=== PATIENT | female | born 1955 | race Caucasian/White ===

== ENCOUNTER 2016-11-14 14:15 | Inpatient (IN) | payer MEDICARE, OTHER ==
[~2016-11-14] VITALS: Ht 165.1 cm; Wt 126.8 kg
[2016-11-18] MEDS ORDERED: VENTAER INH (15:07)
[2016-11-18] MEDS ORDERED: LEVO125T4 PO (15:07)
[2016-11-18] MEDS ORDERED: LOVA10TA PO (15:07)
[2016-11-18] MEDS ORDERED: LISI2.5T3 PO (15:07)
[2016-11-18] MEDS ORDERED: MECL-62 PO (15:07)
[2016-11-18] MEDS ORDERED: CYMB60CA PO (15:07)
[2016-11-18] MEDS ORDERED: METF1000 PO (15:07)
[2016-11-18] MEDS ORDERED: AMBI10TA PO (15:07)
[2016-11-18] MEDS ORDERED: FLUTI220I INH (15:07)
[2016-11-18] MEDS ORDERED: HYDR-755 PO (15:07)
[2016-11-18] MEDS ORDERED: GABA600T PO (15:07)
[2016-11-18] MEDS ORDERED: BUPR150T3 PO (15:07)
[2016-11-18] MEDS ORDERED: PROT40TA PO (15:07)
[2016-11-18] MEDS ORDERED: BACL10TA PO (15:07)
[2016-12-03] MEDS ORDERED: LACTATED RINGER'S 1000 ML IV SCH (09:00)
[2016-12-03] MEDS ORDERED: DEXAMETHASONE SOD PHOS 20 MG/5 ML VIAL IV SCH (09:00)
[2016-12-03] MEDS ORDERED: INSULIN HUMAN REGULAR 1,000 UNITS/10 ML VIAL SQ PRN (09:00)
[2016-12-03] MEDS ORDERED: VANCOMYCIN 1000 MG/NS 250 ML (for <70 kg) IV SCH ×2 (09:00)
[2016-12-03] MEDS ORDERED: SODIUM CHLORID 0.9% 500 ML IV SCH (09:00)
[2016-12-03] MEDS ORDERED: METOPROLOL TARTRATE 25 MG TAB PO PRN (09:00)
[2016-12-03] MEDS ORDERED: LOVA40TA PO (09:38)
[2016-12-03] MEDS ORDERED: BUSP10TA PO (09:38)
[2016-12-03] MEDS ORDERED: ZOFR4TAB PO (09:38)
[2016-12-03 09:41] VITALS: BP 131/91; PULSE 68; RESP 20; TEMP 97.9; O2SAT 98
[2016-12-03] MEDS: SODIUM CHLORIDE 0.9% IV SCH ×2 (10:00→12:23)
[2016-12-03] MEDS: TRANEXAMIC ACID IV SCH ×2 (10:00→12:23)
[2016-12-03] MEDS ORDERED: ROPIVACAINE PERI-ARTICULAR INJECTION. PERIART SCH ×5 (10:00)
[2016-12-03] MEDS ORDERED: GENTAMICIN SULFATE 80 MG/2 ML VIAL ONE (11:02)
[2016-12-03] MEDS ORDERED: HYDROmorphone HCL PF 2 MG/ML VIAL ONE (11:20)
[2016-12-03] MEDS ORDERED: ACETAMINOPHEN 1000 MG/100 ML VIAL IV ONE (11:20)
[2016-12-03] MEDS: POVIDONE IODINE 7.5% SCRUB 118 ML BOTTLE TOP SCH (11:30)
[2016-12-03] MEDS ORDERED: MIDAZOLAM HCL 2 MG/2 ML VIAL ONE (11:32)
[2016-12-03] MEDS ORDERED: DICLOFENAC SODIUM 37.5 MG/ML VIAL IV PUSH ONE (11:39)
[2016-12-03] MEDS ORDERED: EPINEPHRINE IV PUSH ONE (12:15)
[2016-12-03] MEDS ORDERED: CLONIDINE IV PUSH ONE (12:15)
[2016-12-03] MEDS ORDERED: [UNRECOGNIZED DRUG - OTHER] IV PUSH ONE (12:15)
[2016-12-03] MEDS ORDERED: KETOROLAC IV PUSH ONE (12:15)
--- NOTE | 2016-12-03 12:23 | HHI.DCPOC ---
Discharge Care Plan Diagnosis: (1) Primary localized osteoarthrosis, lower leg (2) Status post total knee replacement, right Your Health Problems Are: Difficulty with ADL Goals to Promote Your Health * To prevent worsening of your condition and complications * To maintain your health at the optimal level Directions to Meet Your Goals Take your medications as prescribed Follow your dietary instruction Follow activity as directed Keep your appointments as scheduled Take your immunizations and boosters as scheduled If your symptoms worsen call your PCP, if no PCP go to Urgent Care Center or Emergency Room Smoking is Dangerous to Your Health. Avoid second hand smoke Call the 24-hour hour crisis hotline for domestic abuse at Darryl Lackey Dec 03, 2016 12:23
--- NOTE | 2016-12-03 12:25 | HHI.FF ---
Face to Face Verification Diagnosis: (1) Primary localized osteoarthrosis, lower leg (2) Status post total knee replacement, right Physical Therapy Gait training, Transfer training, bed to chair Knee: Total knee Right LE Weight Bearing: WB as tolerated Right LE Range of Motion: Active ROM Nursing Nursing: Garfield teaching, Dressing changes Dressing Changes: Daily dressing change I have seen patient Moni Singh on 12/03/16. My clinical findings support the need for the requested home health care services because: Limited ability to care for self High risk of falls I certify that my clinical findings support that this patient is homebound because: Post-op weakness Unsteady gait/balance Darryl Lackey Dec 03, 2016 12:25
[2016-12-03] MEDS ORDERED: CPMMACHINE (12:28)
[2016-12-03] MEDS ORDERED: COMMODE 3-IN-11 MIS (12:28)
[2016-12-03] MEDS ORDERED: WALKER WHEELS/F1 MIS (12:28)
[2016-12-03] MEDS ORDERED: ePHEDrine/NS 25 MG/5 ML SYR IV ONE (13:04)
[2016-12-03] MEDS ORDERED: PROPOFOL 200 MG/20 ML AMP IV ONE (13:04)
[2016-12-03] MEDS ORDERED: LACTATED RINGER'S 1000 ML INJ 1,000 ML IV ONE (13:05)
[2016-12-03] MEDS ORDERED: NEOSTIGMINE 3 MG/3 ML SYR IV ONE (13:05)
[2016-12-03] MEDS ORDERED: ONDANSETRON HCL 4 MG/2 ML VIAL IV PUSH ONE (13:05)
[2016-12-03] MEDS ORDERED: ALUMINUM/MAGNESIUM/SIMETH 30 ML CUP PO PRN (14:15)
[2016-12-03] MEDS ORDERED: ONDANSETRON HCL 4 MG/2 ML VIAL IVP PRN (14:15)
[2016-12-03] MEDS ORDERED: diphenhydrAMINE HCL 50 MG/ML VIAL IV PRN (14:15)
[2016-12-03] MEDS ORDERED: MAGNESIUM HYDROXIDE SUSP 30 ML CUP PO PRN (14:15)
[2016-12-03] MEDS ORDERED: BISACODYL 10 MG SUPP PR PRN (14:15)
[2016-12-03] MEDS ORDERED: SODIUM CHLORIDE 0.9% FLUSH 5 ML FLUSH IVF PRN (14:15)
[2016-12-03] MEDS ORDERED: NALOXONE HCL 0.4 MG/ML AMP IV PRN (14:15)
[2016-12-03] MEDS ORDERED: Post-op Orders (for Pharmacy) MISC XX ONE (14:15)
--- NOTE | 2016-12-03 14:20 | PD.OP ---
cc: Wolf Bonilla MD Operative Report Date of Surgery: Dec 03, 2016 Preoperative Diagnosis: Right knee severe osteoarthritis. Morbid obesity. Postoperative Diagnosis: Same Procedure: Right total knee arthroplasty Anesthesia: Gen. Surgeon: Wolf Bonilla Casing Mixer(s): JEFF Ching The surgical procedure was assisted by my Advanced Registered Nurse Practitioner. My ORBITREAD OPERATOR presence was necessary throughout this case for the manipulation and positioning of the surgical extremity. My ORBITREAD OPERATOR was assisting me throughout the duration of this procedure. The skill set of an Advance Registered Nurse Practitioner was medically necessary to complete this procedure. During the surgical case, the surgical dressing maker was working at the back table and the Advance Registered Nurse Practitioner was directly assisting me. Operation and Findings: IMPLANTS: DePuy Attune: Patella: size 35. Femur, posterior stabilized size 7. Tibia, rotating platform size 6. Tibial insert, rotating platform, posterior stabilized size 7 mm thickness. ESTIMATED BLOOD LOSS: 150 cc TOURNIQUET TIME: 48 minutes at 300 mmHg pressure. JUSTIFICATION FOR PROCEDURE: The patient has end-stage osteoarthritis to the knee. There is an attached conservative measures pathway form in the chart that describes the nonoperative measures that were undertaken prior to consideration of surgical management. The patient understood the risks and benefits of surgical management. See my office notes for further details PROCEDURE: The patient was brought back to the operative theatre. Adequate anesthesia was obtained. The patient received intravenous vancomycin and Ancef. The lower extremity was prepped and draped in the usual sterile fashion.The leg was exsanguinated, the tourniquet was raised. A standard anterior incision was performed followed by medial parapatellar arthrotomy was performed. End-stage arthritis was identified. Osteotomy of the patella was performed. We drilled holes for the patella. We trialed the patella component. We placed an intramedullary guide into the distal femur. We ultimately resected 13 mm off of the distal femur in 5 degrees of valgus. The remnants of the ACL and PCL were resected. Osteotomy of the proximal tibia was performed, resecting 5 mm off of the medial side. This was done with 3 degrees of posterior slope using an extramedullary guide. The distal end of the guide was placed in the mid aspect of the ankle. The femur was sized, and four chamfer cuts were completed in 3 of external rotation. We then cut the central box in the distal femur to replace the PCL. We resected the remnants of the menisci and removed osteophytes off of the femur and tibia. We then trialed the knee. We punched the tibia for the keel, and then used standard technique to cement in components. Excess cement was removed. We trialed the knee again and the final polyethylene thickness was chosen to provide extension to 0 degrees, and flexion of 140 degrees to gravity. The ligaments were appropriately balanced. Lateral release was necessary to obtain excellent patellofemoral tracking. The tourniquet was released and adequate hemostasis was obtained. An intra- articular injection of a cocktail was injected (with no ropivacaine due to allergy). The posterior knee was inspected for excess cement, which was removed. The final polyethylene was put into position after thorough irrigation. We then closed deep fascia with a #2 Stratafix followed by skin with 2-0 Vicryl followed by karin. Postop plan is to weight-bear as tolerated. DVT prophylaxis will be performed with Adolfo, NAZIA benites, early mobilization, and Lovenox followed by aspirin. Wolf Bonilla MD Dec 03, 2016 14:20
[2016-12-03] MEDS ORDERED: ASPI325T PO (14:21)
[2016-12-03] MEDS ORDERED: HYDR-3366 PO (14:21)
[2016-12-03] MEDS ORDERED: ENOX40P SQ (14:21)
[2016-12-03] MEDS ORDERED: PILL SPLITTER OTHER PRN (14:45)
[2016-12-03] MEDS ORDERED: ONDANSETRON ODT 4 MG TAB PO PRN (14:45)
[2016-12-03] MEDS ORDERED: fentaNYL CITRATE 250 MCG/5 ML AMP ONE (14:48)
[2016-12-03] MEDS ORDERED: *morphine SULFATE 8 MG/ML PERIprocedure ONLY ONE ×3 (14:50→15:03)
[2016-12-03] MEDS ORDERED: SODIUM CHLORIDE 0.9% IV SCH (15:00)
[2016-12-03] MEDS ORDERED: TRANEXAMIC ACID IV SCH (15:00)
[2016-12-03] MEDS ORDERED: *MEPERIDINE 25 MG INJ VIAL PERIprocedural Use ONLY ONE (15:06)
[2016-12-03] MEDS ORDERED: *diphenhydrAMINE HCL 50 MG/ML VIAL PERIprocedural Use ONLY ONE (15:25)
[2016-12-03] MEDS: SODIUM CHLOR 0.9% 1000 ML INJ 1,000 ML IV SCH (15:30)
--- NOTE | 2016-12-03 15:52 | RADRPT ---
EXAM DATE/TIME: 12/03/2016 15:12 [facility] COMPARISON: CHEST PA & LAT, November 18, 2016, 12:52. INDICATIONS : Post-op right knee. MEDICAL HISTORY : None. SURGICAL HISTORY : None. ENCOUNTER: Initial ACUITY: 1 day PAIN SCORE: 10/10 LOCATION: Right Knee. FINDINGS: The patient is post right knee arch plasty. Orthopedic hardware is in excellent position. CONCLUSION: 1. Orthopedic hardware in excellent position. Darryl Wilkinson MD on December 03, 2016 at 15:51 Board Certified Radiologist. This report was verified electronically.
[2016-12-03] MEDS ORDERED: *RESP: ALBUTEROL 2.5 MG/3 ML NEB (PRN) PERIprocedural Use ONLY NEB ONE (15:55)
[2016-12-03 16:30] VITALS: O2SAT 96
[2016-12-03] MEDS ORDERED: ALBUTEROL SULFATE 90 MCG/ACT HFA 8 GM INHALER INH PRN (17:00)
--- NOTE | 2016-12-03 17:36 | PD.CONS ---
[facility] By [facility] surgery Reason for Consult Medical management Primary Care Physician Ashok Ely M.D. Diagnoses: History of Present Illness 61-year-old female with a history of diabetes type 2, hypothyroidism, hypertension, sever right knee OA who despite medical management and intramuscular injection continue to have right knee pain affecting his daily living of activity was taken to the OR and underwent Right total knee arthroplasty. Patient was seen in PACU, alert and oriented 3 and denies any chest pain or shortness of breath. Review of Systems Other 12 systems reviewed and are negative except for the one mentioned in history of present illness Past Family Social History Allergies: Coded Allergies: Penicillin (Unverified Allergy, Severe, hives, 12/03/16) Uncoded Allergies: betadine (Allergy, Unknown, skin irritation, 11/18/16) ivp dye (Allergy, Unknown, unknown, 11/18/16) lidocaine (Allergy, Unknown, swelling at inject site, 11/18/16) Past Medical History Diabetes type 2 Hypertension Obstructive sleep apnea Asthma COPD Hypothyroidism Past Surgical History Right total knee arthroplasty 12/03/16 Gastric bypass Reported Medications See EMR Family History Noncontributory Social History Denies tobacco, alcohol or illicit drug intake Physical Exam Vital Signs Vital Signs Date Time Temp Pulse Resp B/P Pulse Ox O2 Delivery O2 Flow Rate FiO2 12/03/16 09:41 97.9 68 20 131/91 98 Physical Exam GENERAL: This is a well-nourished, well-developed patient, in no apparent distress. SKIN: No rashes, ecchymoses or lesions. Cool and dry. HEAD: Atraumatic. Normocephalic. No temporal or scalp tenderness. EYES: Pupils equal round and reactive. Extraocular motions intact. No scleral icterus. No injection or drainage. ENT: Nose without bleeding, purulent drainage or septal hematoma. Throat without erythema, tonsillar hypertrophy or exudate. Uvula midline. Airway patent. NECK: Trachea midline. No JVD or lymphadenopathy. Supple, nontender, no meningeal signs. CARDIOVASCULAR: Regular rate and rhythm without murmurs, gallops, or rubs. RESPIRATORY: Clear to auscultation. Breath sounds equal bilaterally. No wheezes , rales, or rhonchi. GASTROINTESTINAL: Abdomen soft, non-tender, nondistended. No hepato-splenomegaly , or palpable masses. No guarding. MUSCULOSKELETAL: Extremities without clubbing, cyanosis, or edema. No joint tenderness, effusion, or edema noted. Right knee repair-neurovascular intact NEUROLOGICAL: Awake and alert. Cranial nerves II through XII intact. Motor and sensory grossly within normal limits. Five out of 5 muscle strength in all muscle groups. Normal speech. Laboratory Laboratory Tests Test 12/03/16 09:35 Blood Type A POSITIVE Antibody Screen NEGATIVE Blood Bank Comment Imaging Last Impressions Knee X-Ray 12/03/16 1413 Signed Impressions: Service Date/Time: Saturday, December 03, 2016 15:12 - CONCLUSION: 1. Orthopedic hardware in excellent position. Darryl Wilkinson MD Assessment and Plan Assessment and Plan 61-year-old female with Right Severe knee OA:s/p Right total knee arthroplasty 12/03/16, management per orthopedic surgery. Continue postop care including antibiotics, pain management. PT consult to treat and eval. Lovenox for DVT prophylaxis Diabetes type 2: Resume metformin, low-dose insulin sliding scale Diabetic neuropathy: Continue Neurontin Obstructive sleep apnea: Continue home CPAP machine Hypertension: Lisinopril 2.5 mg daily COPD: No exacerbation, bronchodilator when necessary DVT prophylaxis: Lovenox Thank you for this consultation Code Status Full code Discussed Condition With Patient Justin De La Paz MD Dec 03, 2016 17:36
[2016-12-03] MEDS ORDERED: RESP: ALBUTEROL 2.5 MG/IPRATROPIUM 0.5 MG NEB (PRN) NEB (17:45)
[2016-12-03] MEDS ORDERED: ENALAPRILAT 1.25 MG/ML VIAL IV PUSH PRN (17:45)
[2016-12-03] MEDS ORDERED: BACITRACIN TOP OINT 15 GM TUBE ONE (17:52)
[2016-12-03] MEDS: busPIRone HCL 10 MG TAB PO SCH (18:00)
[2016-12-03] MEDS: MORPHINE SULFATE 4 MG/ML INJ IV PUSH PRN (18:00)
[2016-12-03 18:25] VITALS: BP 116/61; PULSE 84; RESP 20; TEMP 95.7; O2SAT 94
[2016-12-03] MEDS: metFORMIN HCL 500 MG TAB PO SCH (18:37)
[2016-12-03] MEDS: GABAPENTIN 300 MG CAP PO SCH (18:37)
[2016-12-03] MEDS: ACETAMINOPHEN/HYDROcodone 325 MG/10 MG TAB PO PRN (18:38)
[2016-12-03] MEDS ORDERED: METR28.4 TOPICAL (18:54)
[2016-12-03 20:26] VITALS: BP 103/55; PULSE 80; RESP 19; TEMP 96.5; O2SAT 94
[2016-12-03] MEDS: SODIUM CHLORIDE 0.9% FLUSH 5 ML FLUSH IVF SCH (21:00)
[2016-12-03] MEDS: hydrOXYzine HCL 10 MG TAB PO SCH (21:59)
[2016-12-04] VITALS (8 sets, daily range): BP systolic 55–123; BP diastolic 52–63; PULSE 63–94; RESP 16–21; TEMP 95.5–98.5; O2SAT 91–98
[2016-12-04] MEDS: SODIUM CHLOR 0.9% 1000 ML INJ 1,000 ML IV SCH ×3 (00:13→11:02)
[2016-12-04] MEDS: ACETAMINOPHEN/HYDROcodone 325 MG/10 MG TAB PO PRN ×4 (02:47→17:32)
[2016-12-04] MEDS: LEVOTHYROXINE SODIUM 125 MCG TAB PO SCH (05:00)
[2016-12-04 06:08] LABS: HEMATOCRIT 26.8 % (35.0-46.0); MEAN CELL VOLUME 78.9 FL (80.0-100.0); MEAN CORPUSCULAR HGB CONC 31.7 % (32.0-36.0); PLATELET COUNT 256 TH/MM3 (150-450); RED BLOOD COUNT 3.39 MIL/MM3 (4.00-5.30); RED CELL DISTRIBUTION WIDTH 17.1 % (11.6-17.2); REVIEW FLAG FINAL; WHITE BLOOD COUNT 12.2 TH/MM3 (4.0-11.0)
[2016-12-04 06:31] LABS: BICARBONATE 25.9 MEQ/L (21.0-32.0)
[2016-12-04] MEDS: TRANEXAMIC ACID IV SCH (07:24)
[2016-12-04] MEDS: SODIUM CHLORIDE 0.9% IV SCH (07:24)
[2016-12-04] MEDS ORDERED: DEXAMETHASONE SOD PHOS 20 MG/5 ML VIAL IV ONE (07:45)
[2016-12-04] MEDS: busPIRone HCL 10 MG TAB PO SCH ×3 (09:00→17:23)
[2016-12-04] MEDS: SODIUM CHLORIDE 0.9% FLUSH 5 ML FLUSH IVF SCH ×2 (09:00→20:56)
--- NOTE | 2016-12-04 09:19 | HHI.PR ---
Subjective Remarks Patient seen and examined No acute event overnight Pain to right knee currently controlled Afebrile Objective Vitals Vital Signs Date Time Temp Pulse Resp B/P Pulse Ox O2 Delivery O2 Flow Rate FiO2 12/04/16 08:51 97 Nasal Cannula 21 12/04/16 06:10 104/62 12/04/16 04:26 95.8 89 20 123/56 97 12/04/16 03:45 18 12/04/16 00:24 95.5 86 21 98/57 96 12/03/16 20:26 96.5 80 19 103/55 94 12/03/16 19:46 18 12/03/16 19:46 18 12/03/16 19:46 18 12/03/16 19:46 18 12/03/16 19:39 18 12/03/16 18:25 95.7 84 20 116/61 94 12/03/16 18:00 16 94 Nasal Cannula 3 12/03/16 17:40 16 96 Nasal Cannula 3 12/03/16 17:30 80 16 106/69 95 12/03/16 17:00 72 16 113/69 95 12/03/16 16:45 76 16 106/58 95 12/03/16 16:30 96 home cpap 5.00 12/03/16 16:30 76 16 117/62 95 12/03/16 16:15 76 16 118/68 94 12/03/16 16:00 82 16 130/70 94 12/03/16 15:30 80 16 139/76 94 Nasal Cannula 3 12/03/16 15:15 82 16 142/80 93 Nasal Cannula 3 12/03/16 15:00 88 16 144/80 94 Nasal Cannula 3 12/03/16 14:45 82 16 140/82 94 Nasal Cannula 3 12/03/16 14:40 98.3 86 16 141/81 93 Nasal Cannula 3 12/03/16 09:41 97.9 68 20 131/91 98 I/O 12/03/16 12/03/16 12/03/16 12/04/16 12/04/16 12/04/16 07:00 15:00 23:00 07:00 15:00 23:00 Intake Total 724 ml 1091 ml Output Total 450 ml 350 ml Balance 274 ml 741 ml Intake Oral 240 ml 480 ml IV Total 484 ml 611 ml Output Urine Total 450 ml 350 ml # Bowel Movements 0 0 Result Diagram: 12/04/16 0521 12/04/16 0521 Imaging Last Impressions Knee X-Ray 12/03/16 1413 Signed Impressions: Service Date/Time: Saturday, December 03, 2016 15:12 - CONCLUSION: 1. Orthopedic hardware in excellent position. Darryl Wilkinson MD Objective Remarks GENERAL: NAD SKIN: Warm and dry. HEAD: Normocephalic. EYES: No scleral icterus. No injection or drainage. NECK: Supple, trachea midline. No JVD or lymphadenopathy. CARDIOVASCULAR: Regular rate and rhythm without murmurs, gallops, or rubs. RESPIRATORY: Breath sounds equal bilaterally. No accessory muscle use. GASTROINTESTINAL: Abdomen soft, non-tender, nondistended. MUSCULOSKELETAL: No cyanosis, or edema. Right knee repair-neurovascular intact BACK: Nontender without obvious deformity. No CVA tenderness. A/P Assessment and Plan 61-year-old female with Right Severe knee OA:s/p Right total knee arthroplasty 12/03/16, management per orthopedic surgery. Continue postop care , pain management. PT consult to treat and eval. Litzynox for DVT prophylaxis Diabetes type 2: Continue metformin, low-dose insulin sliding scale Diabetic neuropathy: Continue Neurontin Obstructive sleep apnea: Continue home CPAP machine Hypertension: Lisinopril 2.5 mg daily COPD: No exacerbation, bronchodilator when necessary DVT prophylaxis: Justin Carr MD Dec 04, 2016 09:19
[2016-12-04] MEDS: PRAVASTATIN SOD 40 MG TAB PO SCH (09:42)
[2016-12-04] MEDS: DULoxetine HCl DR 60 MG CAP PO SCH (09:43)
[2016-12-04] MEDS: LISINOPRIL 5 MG TAB PO SCH (09:44)
[2016-12-04] MEDS: PANTOPRAZOLE SOD 40 MG DELAYED RELEASE TAB PO SCH (09:44)
[2016-12-04] MEDS: metFORMIN HCL 500 MG TAB PO SCH ×2 (09:44→17:24)
[2016-12-04] MEDS: FLUTICASONE PROPIONATE 220 MCG/ACT 12 GM INHALER INH SCH (09:45)
[2016-12-04] MEDS: GABAPENTIN 300 MG CAP PO SCH ×3 (09:45→17:23)
[2016-12-04] MEDS: POVIDONE IODINE 7.5% SCRUB 118 ML BOTTLE TOP SCH (09:47)
[2016-12-04] MEDS ORDERED: INFLUENZA VIRUS VACCINE (QUADRIVALENT) 0.5 ML SYR IM ONE (10:00)
[2016-12-04] MEDS: MORPHINE SULFATE 4 MG/ML INJ IV PUSH PRN ×2 (11:00→22:44)
--- NOTE | 2016-12-04 12:34 | PD.ORT.PN ---
Subjective Post Op Day #: 1 Subjective Remarks The patient is OOB in chair with mild to moderate right knee pain. Patient requesting to stay in the hospital another night. Objective Vitals Vital Signs Date Time Temp Pulse Resp B/P Pulse Ox O2 Delivery O2 Flow Rate FiO2 12/04/16 08:51 97 Nasal Cannula 21 12/04/16 08:00 97.9 78 16 104/63 91 12/04/16 06:10 104/62 12/04/16 04:26 95.8 89 20 123/56 97 12/04/16 03:45 18 12/04/16 00:24 95.5 86 21 98/57 96 12/03/16 20:26 96.5 80 19 103/55 94 12/03/16 19:46 18 12/03/16 19:46 18 12/03/16 19:46 18 12/03/16 19:46 18 12/03/16 19:39 18 12/03/16 18:25 95.7 84 20 116/61 94 12/03/16 18:00 16 94 Nasal Cannula 3 12/03/16 17:40 16 96 Nasal Cannula 3 12/03/16 17:30 80 16 106/69 95 12/03/16 17:00 72 16 113/69 95 12/03/16 16:45 76 16 106/58 95 12/03/16 16:30 96 home cpap 5.00 12/03/16 16:30 76 16 117/62 95 12/03/16 16:15 76 16 118/68 94 12/03/16 16:00 82 16 130/70 94 12/03/16 15:30 80 16 139/76 94 Nasal Cannula 3 12/03/16 15:15 82 16 142/80 93 Nasal Cannula 3 12/03/16 15:00 88 16 144/80 94 Nasal Cannula 3 12/03/16 14:45 82 16 140/82 94 Nasal Cannula 3 12/03/16 14:40 98.3 86 16 141/81 93 Nasal Cannula 3 I/O 12/03/16 12/03/16 12/03/16 12/04/16 12/04/16 12/04/16 07:00 15:00 23:00 07:00 15:00 23:00 Intake Total 724 ml 1091 ml Output Total 450 ml 350 ml Balance 274 ml 741 ml Intake Oral 240 ml 480 ml IV Total 484 ml 611 ml Output Urine Total 450 ml 350 ml # Bowel Movements 0 0 Result Diagram: 12/04/16 0521 12/04/16 0521 Imaging Last 24 hours Impressions Knee X-Ray 12/03/16 1413 Signed Impressions: Service Date/Time: Saturday, December 03, 2016 15:12 - CONCLUSION: 1. Orthopedic hardware in excellent position. Darryl Wilkinson MD Procedures Right TKA Objective Remarks The patient's dressing was changed with scant serosanguineous drainage. Incision is well approximated with surgical clips intact. No redness or s/s of infection. EHL/TA/G intact. Calf is soft and nontender. + SILT. 2+ pedal pulse. Minimal swelling. Assessment & Plan Ortho Post Op Day #: 1 Problem List: Assessment and Plan POD #1: right TKA 1. WBAT RLE 2. Lovenox for DVT prophylaxis 3. Ice to the right knee PRN 4. Patient will likely be discharged home with home health on Thursday. Darryl Lackey Dec 04, 2016 12:34
[2016-12-04] MEDS: ENOXAPARIN SODIUM 40 MG/0.4 ML SYRINGE SQ SCH (13:51)
[2016-12-04] MEDS: DOCUSATE SODIUM 100 MG CAP PO SCH (20:55)
[2016-12-04] MEDS: hydrOXYzine HCL 10 MG TAB PO SCH (20:56)
[2016-12-04] MEDS: MULTIVITAMINS/MINERALS THERAPEUTIC TAB PO SCH (20:56)
[2016-12-04] MEDS: ZOLPIDEM TARTRATE 5 MG TAB PO PRN (22:44)
[2016-12-05] VITALS (7 sets, daily range): BP systolic 92–111; BP diastolic 46–61; PULSE 68–85; RESP 16–22; TEMP 96.3–98.2; O2SAT 94–98
[2016-12-05] MEDS: ACETAMINOPHEN/HYDROcodone 325 MG/10 MG TAB PO PRN ×3 (04:53→16:57)
[2016-12-05] MEDS: SODIUM CHLOR 0.9% 1000 ML INJ 1,000 ML IV SCH ×3 (04:54→22:20)
[2016-12-05] MEDS: LEVOTHYROXINE SODIUM 125 MCG TAB PO SCH (04:54)
[2016-12-05 05:36] LABS: HEMATOCRIT 26.5 % (35.0-46.0); MEAN CELL VOLUME 77.7 FL (80.0-100.0); MEAN CORPUSCULAR HEMOGLOBIN 24.9 PG (27.0-34.0); MEAN CORPUSCULAR HGB CONC 32.1 % (32.0-36.0); PLATELET COUNT 257 TH/MM3 (150-450); RED BLOOD COUNT 3.41 MIL/MM3 (4.00-5.30); RED CELL DISTRIBUTION WIDTH 16.8 % (11.6-17.2); WHITE BLOOD COUNT 9.5 TH/MM3 (4.0-11.0)
[2016-12-05 05:41] LABS: REVIEW FLAG FINAL
[2016-12-05] MEDS: POVIDONE IODINE 7.5% SCRUB 118 ML BOTTLE TOP SCH (07:16)
[2016-12-05] MEDS: FLUTICASONE PROPIONATE 220 MCG/ACT 12 GM INHALER INH SCH (09:00)
[2016-12-05] MEDS: SODIUM CHLORIDE 0.9% FLUSH 5 ML FLUSH IVF SCH ×2 (09:02→22:19)
[2016-12-05] MEDS: metFORMIN HCL 500 MG TAB PO SCH ×2 (09:03→16:58)
[2016-12-05] MEDS: busPIRone HCL 10 MG TAB PO SCH ×3 (09:03→16:58)
[2016-12-05] MEDS: PANTOPRAZOLE SOD 40 MG DELAYED RELEASE TAB PO SCH (09:05)
[2016-12-05] MEDS: MULTIVITAMINS/MINERALS THERAPEUTIC TAB PO SCH ×2 (09:05→22:19)
[2016-12-05] MEDS: PRAVASTATIN SOD 40 MG TAB PO SCH (09:05)
[2016-12-05] MEDS: DOCUSATE SODIUM 100 MG CAP PO SCH ×2 (09:05→22:18)
[2016-12-05] MEDS: DULoxetine HCl DR 60 MG CAP PO SCH (09:05)
[2016-12-05] MEDS: GABAPENTIN 300 MG CAP PO SCH ×3 (09:06→16:58)
[2016-12-05] MEDS: LISINOPRIL 5 MG TAB PO SCH (09:07)
[2016-12-05] MEDS: MORPHINE SULFATE 4 MG/ML INJ IV PUSH PRN (09:09)
--- NOTE | 2016-12-05 09:50 | HHI.PR ---
Subjective Remarks Patient seen and examined States she was able to work with PT yesterday Stable today with some mild right knee pain Objective Vitals Vital Signs Date Time Temp Pulse Resp B/P Pulse Ox O2 Delivery O2 Flow Rate FiO2 12/05/16 05:36 20 12/05/16 04:31 96.4 71 20 111/61 97 12/05/16 00:24 96.5 85 21 100/53 96 12/04/16 22:49 20 12/04/16 20:16 97.6 63 21 55/ 98 12/04/16 16:00 97.1 94 20 108/52 91 12/04/16 12:00 98.5 77 16 109/56 93 I/O 12/04/16 12/04/16 12/04/16 12/05/16 12/05/16 12/05/16 07:00 15:00 23:00 07:00 15:00 23:00 Intake Total 1091 ml 480 ml 480 ml 360 ml Output Total 350 ml 3 ml Balance 741 ml 480 ml 477 ml 360 ml Intake Oral 480 ml 480 ml 480 ml 360 ml IV Total 611 ml Output Urine Total 350 ml 3 ml # Voids 3 1 # Bowel Movements 0 0 0 0 Result Diagram: 12/05/16 0443 12/04/16 0521 Objective Remarks GENERAL: NAD SKIN: Warm and dry. HEAD: Normocephalic. EYES: No scleral icterus. No injection or drainage. NECK: Supple, trachea midline. No JVD or lymphadenopathy. CARDIOVASCULAR: Regular rate and rhythm without murmurs, gallops, or rubs. RESPIRATORY: Breath sounds equal bilaterally. No accessory muscle use. GASTROINTESTINAL: Abdomen soft, non-tender, nondistended. MUSCULOSKELETAL: No cyanosis, or edema. Right knee repair-neurovascular intact BACK: Nontender without obvious deformity. No CVA tenderness. A/P Assessment and Plan 61-year-old female with Right Severe knee OA:s/p Right total knee arthroplasty 12/03/16, management per orthopedic surgery. Continue current postop care , pain management. PT consult to treat and eval. Lovenox for DVT prophylaxis Diabetes type 2: Continue metformin, low-dose insulin sliding scale Diabetic neuropathy: Continue Neurontin Obstructive sleep apnea: Continue home CPAP machine Hypertension: Lisinopril 2.5 mg daily COPD: No exacerbation, bronchodilator when necessary DVT prophylaxis: Lovenox Discharge Planning Likely discharge 12/06/16 Justin De La Paz MD Dec 05, 2016 09:50
[2016-12-05] MEDS: ENOXAPARIN SODIUM 40 MG/0.4 ML SYRINGE SQ SCH (11:13)
--- NOTE | 2016-12-05 16:02 | PD.ORT.PN ---
Subjective Subjective Remarks patient doing well, pain better controlled Objective Vitals Vital Signs Date Time Temp Pulse Resp B/P Pulse Ox O2 Delivery O2 Flow Rate FiO2 12/05/16 10:57 94 21 12/05/16 08:00 96.8 75 16 100/56 95 12/05/16 05:36 20 12/05/16 04:31 96.4 71 20 111/61 97 12/05/16 00:24 96.5 85 21 100/53 96 12/04/16 22:49 20 12/04/16 20:16 97.6 63 21 55/ 98 12/04/16 16:00 97.1 94 20 108/52 91 I/O 12/04/16 12/04/16 12/04/16 12/05/16 12/05/16 12/05/16 07:00 15:00 23:00 07:00 15:00 23:00 Intake Total 1091 ml 480 ml 480 ml 360 ml Output Total 350 ml 3 ml Balance 741 ml 480 ml 477 ml 360 ml Intake Oral 480 ml 480 ml 480 ml 360 ml IV Total 611 ml Output Urine Total 350 ml 3 ml # Voids 3 1 # Bowel Movements 0 0 0 0 Result Diagram: 12/05/16 0443 12/04/16 0521 Imaging Last 24 hours Impressions Knee X-Ray 12/03/16 1413 Signed Impressions: Service Date/Time: Saturday, December 03, 2016 15:12 - CONCLUSION: 1. Orthopedic hardware in excellent position. Darryl Wilkinson MD Procedures Right TKA Objective Remarks The patient's dressing was changed no drainage. Incision is well approximated with surgical clips intact. No redness or s/s of infection. EHL/TA/G intact. Calf is soft and nontender. + SILT. 2+ pedal pulse. Minimal swelling. Assessment & Plan Assessment and Plan POD #2: right TKA 1. WBAT RLE 2. Lovenox for DVT prophylaxis 3. Ice to the right knee PRN 4. d/c home tomorrow morning with [facility]. Wolf Bonilla MD Dec 05, 2016 16:02
[2016-12-05] MEDS: hydrOXYzine HCL 10 MG TAB PO SCH (22:18)
[2016-12-06] VITALS: BP 109/60; PULSE 80; RESP 20; TEMP 98.5; O2SAT 95
[2016-12-06] MEDS: ACETAMINOPHEN/HYDROcodone 325 MG/10 MG TAB PO PRN ×3 (00:27→14:58)
[2016-12-06] MEDS: ZOLPIDEM TARTRATE 5 MG TAB PO PRN (00:27)
[2016-12-06 05:06] LABS: HEMATOCRIT 27.6 % (35.0-46.0); MEAN CELL VOLUME 77.6 FL (80.0-100.0); MEAN CORPUSCULAR HEMOGLOBIN 24.5 PG (27.0-34.0); MEAN CORPUSCULAR HGB CONC 31.6 % (32.0-36.0); PLATELET COUNT 236 TH/MM3 (150-450); RED BLOOD COUNT 3.55 MIL/MM3 (4.00-5.30); WHITE BLOOD COUNT 9.3 TH/MM3 (4.0-11.0)
[2016-12-06 05:16] LABS: REVIEW FLAG FINAL
[2016-12-06] MEDS: LEVOTHYROXINE SODIUM 125 MCG TAB PO SCH (06:24)
--- NOTE | 2016-12-06 07:17 | PD.ORT.PN ---
Subjective Subjective Remarks Resting comfortably Objective Vitals Vital Signs Date Time Temp Pulse Resp B/P Pulse Ox O2 Delivery O2 Flow Rate FiO2 12/05/16 19:29 Room Air 12/05/16 16:48 96.5 73 16 92/46 98 12/05/16 12:00 96.3 68 16 100/51 95 12/05/16 10:57 94 21 12/05/16 08:00 96.8 75 16 100/56 95 I/O 12/05/16 12/05/16 12/05/16 12/06/16 12/06/16 12/06/16 07:00 15:00 23:00 07:00 15:00 23:00 Intake Total 360 ml 1600 ml 480 ml Balance 360 ml 1600 ml 480 ml Intake Oral 360 ml 1600 ml 480 ml # Voids 1 7 2 # Bowel Movements 0 0 0 Result Diagram: 12/06/16 0341 12/04/16 0521 Imaging Last 24 hours Impressions Knee X-Ray 12/03/16 1413 Signed Impressions: Service Date/Time: Saturday, December 03, 2016 15:12 - CONCLUSION: 1. Orthopedic hardware in excellent position. Darryl Wilkinson MD Procedures Right TKA Objective Remarks The patient's dressing was changed no drainage. Incision is well approximated with surgical clips intact. No redness or s/s of infection. EHL/TA/G intact. Calf is soft and nontender. + SILT. 2+ pedal pulse. Minimal swelling. Assessment & Plan Assessment and Plan POD #3: right TKA 1. WBAT RLE 2. Lovenox for DVT prophylaxis 3. Ice to the right knee PRN 4. d/c home today with [facility]. Joseph Justice Jr. Dec 06, 2016 07:17
[2016-12-06] MEDS ORDERED: MULT-65 PO (07:19)
[2016-12-06 08:00] VITALS: BP 92/56; PULSE 68; RESP 18; TEMP 97.9; O2SAT 94
[2016-12-06] MEDS: PRAVASTATIN SOD 40 MG TAB PO SCH (08:11)
[2016-12-06] MEDS: metFORMIN HCL 500 MG TAB PO SCH (08:11)
[2016-12-06] MEDS: MULTIVITAMINS/MINERALS THERAPEUTIC TAB PO SCH (08:11)
[2016-12-06] MEDS: PANTOPRAZOLE SOD 40 MG DELAYED RELEASE TAB PO SCH (08:11)
[2016-12-06] MEDS: DULoxetine HCl DR 60 MG CAP PO SCH (08:11)
[2016-12-06] MEDS: LISINOPRIL 5 MG TAB PO SCH (08:12)
[2016-12-06] MEDS: DOCUSATE SODIUM 100 MG CAP PO SCH (08:12)
[2016-12-06] MEDS: busPIRone HCL 10 MG TAB PO SCH ×2 (08:12→13:13)
[2016-12-06] MEDS: GABAPENTIN 300 MG CAP PO SCH ×2 (08:12→13:13)
[2016-12-06] MEDS: FLUTICASONE PROPIONATE 220 MCG/ACT 12 GM INHALER INH SCH (08:26)
[2016-12-06] MEDS: SODIUM CHLORIDE 0.9% FLUSH 5 ML FLUSH IVF SCH (08:26)
--- NOTE | 2016-12-06 08:37 | HHI.PR ---
Subjective Remarks Patient seen and examined She was resting comfortably and denies any pain Vitals stable Objective Vitals Vital Signs Date Time Temp Pulse Resp B/P Pulse Ox O2 Delivery O2 Flow Rate FiO2 12/06/16 00:00 98.5 80 20 109/60 95 12/05/16 20:00 98.2 71 22 105/56 96 12/05/16 19:29 Room Air 12/05/16 16:48 96.5 73 16 92/46 98 12/05/16 12:00 96.3 68 16 100/51 95 12/05/16 10:57 94 21 I/O 12/05/16 12/05/16 12/05/16 12/06/16 12/06/16 12/06/16 07:00 15:00 23:00 07:00 15:00 23:00 Intake Total 360 ml 1600 ml 480 ml Balance 360 ml 1600 ml 480 ml Intake Oral 360 ml 1600 ml 480 ml # Voids 1 7 2 # Bowel Movements 0 0 0 Result Diagram: 12/06/16 0341 12/04/16 0521 Objective Remarks GENERAL: NAD SKIN: Warm and dry. HEAD: Normocephalic. EYES: No scleral icterus. No injection or drainage. NECK: Supple, trachea midline. No JVD or lymphadenopathy. CARDIOVASCULAR: Regular rate and rhythm without murmurs, gallops, or rubs. RESPIRATORY: Breath sounds equal bilaterally. No accessory muscle use. GASTROINTESTINAL: Abdomen soft, non-tender, nondistended. MUSCULOSKELETAL: No cyanosis, or edema. Right knee repair-neurovascular intact BACK: Nontender without obvious deformity. No CVA tenderness. A/P Assessment and Plan 61-year-old female with Right Severe knee OA:s/p Right total knee arthroplasty 12/03/16, management per orthopedic surgery. Continue current care , pain management. PT to treat and eval. Lovenox for DVT prophylaxis Diabetes type 2: Continue metformin, low-dose insulin sliding scale Diabetic neuropathy: Continue Neurontin Obstructive sleep apnea: Continue home CPAP machine as well Hypertension: Lisinopril 2.5 mg daily COPD: No exacerbation, bronchodilator when necessary DVT prophylaxis: Lovenox Discharge Planning discharge 12/06/16 Justin De La Paz MD Dec 06, 2016 08:36
[2016-12-06 11:48] VITALS: BP 92/65; PULSE 77; RESP 16; TEMP 96.6; O2SAT 95
[2016-12-06] MEDS: SODIUM CHLOR 0.9% 1000 ML INJ 1,000 ML IV SCH (12:13)
[2016-12-06] MEDS: ENOXAPARIN SODIUM 40 MG/0.4 ML SYRINGE SQ SCH (13:13)
--- NOTE | 2016-12-07 20:43 | HHI.DS ---
Discharge Summary Admission Date Dec 03, 2016 at 08:12 Discharge Date: Dec 06, 2016 Admitting Diagnosis Primary localized OA, lower leg Status post total knee replacement, right Diagnosis: (1) Primary localized osteoarthrosis, lower leg Diagnosis: Principal (2) Status post total knee replacement, right Diagnosis: Principal Procedures Right TKA Brief History This is a 61 year old female patient with severe OA of the right knee CBC/BMP: 12/06/16 0341 12/04/16 0521 Significant Findings Laboratory Tests Test 12/05/16 12/06/16 04:43 03:41 Red Blood Count 3.41 MIL/MM3 3.55 MIL/MM3 (4.00-5.30) (4.00-5.30) Hemoglobin 8.5 GM/DL 8.7 GM/DL (11.6-15.3) (11.6-15.3) Hematocrit 26.5 % 27.6 % (35.0-46.0) (35.0-46.0) Mean Corpuscular Volume 77.7 FL 77.6 FL (80.0-100.0) (80.0-100.0) Mean Corpuscular Hemoglobin 24.9 PG 24.5 PG (27.0-34.0) (27.0-34.0) Mean Corpuscular Hemoglobin 31.6 % Concent (32.0-36.0) PE at Discharge The patient's dressing was changed no drainage. Incision is well approximated with surgical clips intact. No redness or s/s of infection. EHL/TA/G intact. Calf is soft and nontender. + SILT. 2+ pedal pulse. Minimal swelling. Hospital Course The patient was admitted for severe OA of the right knee to have a right TKA. The patient's surgery went well without complication. The patient was placed on Lovenox for DVT prophylaxis. The patient was placed on a diabetic diet. The patient is WBAT. The patient was discharged home with home health and will f/u with Dr. Bonilla in 1-2 weeks as scheduled. Pt Condition on Discharge: Stable Discharge Disposition: Disch w/ Home Health Serv Discharge Instructions Diet Instructions: Diabetic Diet Activities You Can Perform: Weight Bearing as Vitaliy Activities to Avoid: Strenuous Activity Follow up Referrals: Orthopedics with Wolf Bonilla MD PCP Follow-up - 1 Week SNF/OTF/ with Nurse associate consulting engineer New Medications: Aspirin (Aspirin) 325 Mg Tab 325 MG PO DAILY Start Aspirin after Lovenox is completed. Prevent Blood Clot # 30 Ref 0 TAB Commode 3-in-1 (Commode 3-in-1) 1 Mis Mis 1 EA .ROUTE DIRECTED #1 Ref 0 EA CPM-Continuous Passive Motion Machine (CPM-Continuous Passive Motion Machine) 1 Ea Device 1 EA .ROUTE DIRECTED #1 Ref 0 EA Enoxaparin Inj (Lovenox Inj) 40 Mg/0.4 Ml Syr 40 MG SQ DAILY Start Aspirin after Lovenox is completed. Blood Clot Prevention # 10 Ref 0 SYRINGE Hydrocodone-Acetaminophen ([place]) 10-325 Mg Tab 1-2 TAB PO Q4H PRN PAIN #60 Ref 0 TAB Multiple Vitamin (Multi-Vitamin Daily) 1 Tab Tab 1 TAB PO DAILY Nutritional Supplement #90 Ref 0 TAB Walker with Front Wheels (Walker with Front Wheels) 1 Mis Mis 1 EA .ROUTE DIRECTED #1 Ref 0 EA Continued Medications: Albuterol 18 GM Inh (Ventolin Hfa 18 GM Inh) 90 Mcg/Act Aer 2 PUFF INH Q4-6H PRN SHORTNESS OF BREATH #1 Ref 0 INHALER Baclofen (Baclofen) 10 Mg Tab 10 MG PO BID Muscle Spasm Ref 0 TAB Buspirone (Buspirone) 10 Mg Tab 10 MG PO TID Anxiety Ref [address] (Cymbalta DR) 60 Mg Capdr 60 MG PO DAILY #30 Ref 0 CAP Fluticasone 12 GM Inh (Flovent Hfa 12 GM Inh) 220 Mcg/Act Inh 1 PUFF INH BID Use daily at the same time. PRN SOB/WHEEZING #1 Ref 0 INHALER Gabapentin (Gabapentin) 600 Mg Tab 600 MG PO TID #90 Ref 0 TAB Hydroxyzine HCl (Hydroxyzine HCl) 10 Mg Tab 20 MG PO HS Ref 0 TAB Levothyroxine (Levothyroxine) 125 Mcg Tab 125 MCG PO DAILY Thyroid #30 Ref 0 TAB Lisinopril (Lisinopril) 2.5 Mg Tab 2.5 MG PO DAILY #30 Ref 0 TAB Lovastatin (Lovastatin) 40 Mg Tab 40 MG PO DAILY Cholesterol Management #30 Ref 0 TAB Meclizine (Meclizine) 25 Mg Tab Unknown Dose PO DIRECTED PRN VERTIGO Ref 0 TAB Metformin (Metformin) 1,000 Mg Tab 1000 MG PO BIDPC With meals Blood Sugar Management #60 Ref 0 TAB Ondansetron (Zofran) 4 Mg Tab 4 MG PO Q8HR PRN NAUSEA OR VOMITING Ref 0 TAB Pantoprazole (Protonix) 40 Mg Tab 40 MG PO DAILY Reflux #30 Ref 0 TAB Zolpidem (Ambien) 10 Mg Tab 10 MG PO HS PRN INSOMNIA Ref 0 TAB Darryl Lackey Dec 07, 2016 20:43
== END 2016-12-06 15:56 | disposition home health service (06) | DRG 470 ==
LOC: HSDI 12-03 08:12 → N06A 12-03 18:16
PROVIDERS: ADMIT Orthopaedic Surgery; ATTEND Orthopaedic Surgery
PROC: 0SRC0J9 Replacement of Right Knee Joint with Synthetic Substitute, Cemented, Open Approach (ICD-10-PCS; principal; 2016-12-03 11:47)
DX: M17.11 Unilateral primary osteoarthritis, right knee (principal); E11.40 Type 2 diabetes mellitus with diabetic neuropathy, unspecified; Z68.42 Body mass index [BMI] 45.0-49.9, adult; E66.01 Morbid (severe) obesity due to excess calories; I10 Essential (primary) hypertension; K21.9 Gastro-esophageal reflux disease without esophagitis; M79.7 Fibromyalgia; G47.33 Obstructive sleep apnea (adult) (pediatric); E03.9 Hypothyroidism, unspecified; J44.9 Chronic obstructive pulmonary disease, unspecified; Z79.84 Long term (current) use of oral hypoglycemic drugs; Z87.891 Personal history of nicotine dependence
CPT/HCPCS: 73560; 80048; 82948; 85027; 86850; 86900; 86901; 94150; 94664; C1776; J0131; J0171; J0690; J0735; J1100; J1130; J1170; J1200; J1580; J1650; J1885; J2175; J2250; J2270; J2405; J2710; J3010; J3370; J7030; J7050; J7120; J7613; L1830

== ENCOUNTER → 2016-11-18 | Outpatient (CLI) | payer MEDICARE, OTHER ==
[~2016-11-18] MED LIST: AMBI10TA PO; ARMO60TA OR; ASPI325T PO; BACL10TA PO; BACLPOW30 PO; BUPR150T3 PO; BUPR150XL PO; BUSP10TA PO; COMMODE 3-IN-11 MIS; CPMMACHINE; CYMB60CA PO; DULO20 PO; ENOX40P SQ; FLUTI220I INH; GABA600T PO; GABAPENTIN PO; HYDR-3366 PO; HYDR-755 PO; HYDROXYZINE; LEVO125T4 PO; LISI2.5T3 PO; LOVA10TA PO; LOVA40TA PO; MECL-62 PO; METF1000 PO; METR28.4 TOPICAL; MEVA40TA6 PO; MULT-65 PO; PROT40TA PO; VENTAER INH; WALKER WHEELS/F1 MIS; ZOFR4TAB PO
[2016-11-18 12:55] LABS: AUTOMATED NEUTROPHIL # 4.2 TH/MM3 (1.8-7.7); BASOPHIL % 0.4 % (0.0-2.0); EOSINOPHIL # 0.1 TH/MM3 (0-0.4); EOSINOPHIL % 1.2 % (0.0-4.0); HEMATOCRIT 32.9 % (35.0-46.0); HEMO FLAGS DIFF FINAL; LYMPH % 34.7 % (9.0-44.0); LYMPHOCYTE # 2.7 TH/MM3 (1.0-4.8); MEAN CELL VOLUME 77.4 FL (80.0-100.0); MEAN CORPUSCULAR HGB CONC 32.3 % (32.0-36.0); MONO % 9.2 % (0.0-8.0); NEUT % 54.5 % (16.0-70.0); PLATELET COUNT 278 TH/MM3 (150-450); RED BLOOD COUNT 4.26 MIL/MM3 (4.00-5.30); RED CELL DISTRIBUTION WIDTH 16.9 % (11.6-17.2); WHITE BLOOD COUNT 7.7 TH/MM3 (4.0-11.0)
[2016-11-18 13:04] LABS: APTT (PATIENT) 25.9 SEC (24.3-30.1); INTERNATIONAL NORMALIZED RATIO 0.9 RATIO; PROTHROMBIN TIME - PATIENT 9.8 SEC (9.8-11.6)
--- NOTE | 2016-11-18 13:09 | RADRPT ---
EXAM DATE/TIME: 11/18/2016 12:52 [facility] COMPARISON: No previous studies available for comparison. INDICATIONS : Pre op for knee surgery. MEDICAL HISTORY : Osteoarthritis. SURGICAL HISTORY : None. ENCOUNTER: Initial ACUITY: 1 day PAIN SCORE: 0/10 LOCATION: Bilateral chest FINDINGS: PA and lateral views of the chest demonstrate the lungs to be symmetrically aerated without evidence of mass, infiltrate or effusion. The cardiomediastinal contours are unremarkable. Osseous structure s are intact. CONCLUSION: No acute disease. Justin Mena MD on November 18, 2016 at 13:07 Board Certified Radiologist. This report was verified electronically.
[2016-11-18 13:11] LABS: WESTERGREN SEDIMENTATION RATE 46 mm/hr (0-30)
[2016-11-18 13:23] LABS: ANION GAP 9 MEQ/L (5-15); AST (GOT) 19 U/L (15-37); BICARBONATE 26.6 MEQ/L (21.0-32.0); BLOOD UREA NITROGEN 17 MG/DL (7-18); CHLORIDE 107 MEQ/L (98-107); GLOMERULAR FILTRATION RATE 83 ML/MIN (>89); GLUCOSE,FASTING 89 MG/DL (74-99); POTASSIUM 4.4 MEQ/L (3.5-5.1); SODIUM (NA) 143 MEQ/L (136-145)
[2016-11-18 13:27] LABS: ALKALINE PHOSPHATASE 105 U/L (45-117); ALT (GPT) 38 U/L (10-53); TOTAL BILIRUBIN ADULT 0.2 MG/DL (0.2-1.0)
[2016-11-18 14:16] LABS: BACTERIA, URINE RARE /hpf; BLOOD, URINE NEG (NEG); COMMENT (UR) CULT NOT INDICATED; CULTURE IF INDICATED CULT NOT INDICATED; GLUCOSE,URINE NEG (NEG); KETONE, URINE NEG (NEG); MUCUS URINE FEW /lpf (OCC); NITRITE,URINE NEG (NEG); SQUAMOUS EPITHELIAL CELL URINE <1 /hpf (0-5); URINE COLOR YELLOW (YELLW/STRAW)
== END ==
LOC: CPRE 11:25
PROVIDERS: ATTEND Orthopaedic Surgery
DX: M79.609 Pain in unspecified limb (principal); M25.50 Pain in unspecified joint; Z96.60 Presence of unspecified orthopedic joint implant
CPT/HCPCS: 36415; 71020; 80053; 81001; 85025; 85610; 85652; 85730

== ENCOUNTER 2017-04-27 07:27 | Inpatient (IN) | payer MEDICARE, OTHER ==
[~2017-04-27] VITALS: Ht 162.6 cm; Wt 126.6 kg
[~2017-04-27 07:27] MED LIST changes: -ARMO60TA OR; -BACLPOW30 PO; -BUPR150T3 PO; -BUPR150XL PO; -COMMODE 3-IN-11 MIS; -CPMMACHINE; -DULO20 PO; -ENOX40P SQ; -GABAPENTIN PO; -HYDROXYZINE; +IBUP-1133 PO; -LOVA10TA PO; -METR28.4 TOPICAL; -MEVA40TA6 PO; -WALKER WHEELS/F1 MIS; +ZOFR4TAB3 SL
[2017-04-27] MEDS ORDERED: VANCOMYCIN 1,500 MG/NS 500 ML (for 85-99 kg) IV SCH ×2 (08:00)
[2017-04-27] MEDS ORDERED: ONDANSETRON HCL 4 MG/2 ML VIAL IV PUSH SCH (08:00)
[2017-04-27] MEDS ORDERED: ACETAMINOPHEN 1000 MG/100 ML VIAL IV SCH (08:00)
[2017-04-27 08:13] VITALS: BP 142/86; PULSE 69; RESP 18; TEMP 98.7; O2SAT 94
[2017-04-27] MEDS ORDERED: LACTATED RINGER'S 1000 ML IV PRN (08:30)
[2017-04-27] MEDS ORDERED: CHLORHEXIDINE GLUCONATE 2 % 1 PACK (2 CLOTHS) TOPICAL PRN (08:30)
[2017-04-27] MEDS ORDERED: SODIUM CHLORID 0.9% 500 ML IV PRN (08:30)
[2017-04-27] MEDS ORDERED: INSULIN HUMAN REGULAR 1,000 UNITS/10 ML VIAL SQ PRN (08:30)
[2017-04-27] MEDS ORDERED: METOPROLOL TARTRATE 25 MG TAB PO PRN (08:30)
[2017-04-27] MEDS: metroNIDAZOLE 500 MG INJ 100 ML IV SCH (09:00)
[2017-04-27] MEDS ORDERED: FAMOTIDINE 20 MG/2 ML VIAL ONE (11:09)
[2017-04-27] MEDS ORDERED: HYDROmorphone HCL PF 2 MG/ML VIAL ONE (11:09)
[2017-04-27] MEDS ORDERED: MIDAZOLAM HCL 2 MG/2 ML VIAL ONE (11:09)
[2017-04-27] MEDS ORDERED: VANCOMYCIN 500 MG VIAL ONE (11:18)
[2017-04-27] MEDS ORDERED: VANCOMYCIN HCL 1000 MG VIAL ONE (11:18)
[2017-04-27] MEDS ORDERED: ONDANSETRON HCL 4 MG/2 ML VIAL IV PUSH ONE (12:00)
[2017-04-27] MEDS ORDERED: ePHEDrine/NS 25 MG/5 ML SYR IV ONE (12:00)
[2017-04-27] MEDS ORDERED: PHENYLEPH/NS 1000 MCG/10 ML SYR IV ONE (12:00)
[2017-04-27] MEDS ORDERED: NEOSTIGMINE 3 MG/3 ML SYR IV ONE (12:00)
[2017-04-27] MEDS ORDERED: LACTATED RINGER'S 1000 ML INJ 1,000 ML IV ONE (12:00)
[2017-04-27] MEDS ORDERED: PROPOFOL 200 MG/20 ML AMP IV ONE (12:00)
[2017-04-27] MEDS ORDERED: METOCLOPRAMIDE HCL 10 MG/2 ML VIAL IV PRN (13:15)
[2017-04-27] MEDS ORDERED: SODIUM CHLORIDE 0.9% FLUSH 10 ML FLUSH IV FLUSH PRN (13:15)
[2017-04-27] MEDS ORDERED: oxyCODONE/ACETAMINOPHEN 5 MG/325 MG TAB PO PRN (13:15)
[2017-04-27] MEDS ORDERED: MORPHINE SULFATE 4 MG/ML INJ IV PRN ×2 (13:15)
[2017-04-27] MEDS ORDERED: PILL SPLITTER OTHER PRN (13:30)
[2017-04-27] MEDS ORDERED: DO NOT ADM ANY ANTICOAGULANT DRUGS PRN (13:37)
[2017-04-27] MEDS ORDERED: fentaNYL CITRATE 250 MCG/5 ML AMP ONE (13:49)
[2017-04-27] MEDS ORDERED: *morphine SULFATE 8 MG/ML PERIprocedure ONLY ONE ×2 (14:05→14:35)
[2017-04-27 17:00] VITALS: BP 108/62; PULSE 66; RESP 18; TEMP 95.3; O2SAT 93
[2017-04-27] MEDS: busPIRone HCL 10 MG TAB PO SCH (17:02)
[2017-04-27] MEDS: oxyCODONE/ACETAMINOPHEN 10 MG/325 MG TAB PO PRN ×2 (17:03→22:29)
[2017-04-27] MEDS: SODIUM CHLOR 0.9% 1000 ML INJ 1,000 ML IV SCH ×2 (18:20→21:13)
[2017-04-27 20:00] VITALS: BP 108/64; PULSE 59; RESP 20; TEMP 95.9; O2SAT 97
[2017-04-27] MEDS: SODIUM CHLORIDE 0.9% FLUSH 10 ML FLUSH IV FLUSH SCH (20:15)
[2017-04-28] VITALS (9 sets, daily range): BP systolic 101–136; BP diastolic 58–79; PULSE 64–83; RESP 17–22; TEMP 96.1–97.2; O2SAT 93–98
[2017-04-28] MEDS: oxyCODONE/ACETAMINOPHEN 10 MG/325 MG TAB PO PRN ×4 (02:22→23:42)
[2017-04-28] MEDS: LEVOTHYROXINE SODIUM 125 MCG TAB PO SCH (04:45)
[2017-04-28] MEDS: SODIUM CHLOR 0.9% 1000 ML INJ 1,000 ML IV SCH ×3 (04:46→21:13)
[2017-04-28] MEDS: DULoxetine HCl DR 60 MG CAP PO SCH (08:55)
[2017-04-28] MEDS: PANTOPRAZOLE SODIUM 40 MG VIAL IV SCH (08:55)
[2017-04-28] MEDS: LISINOPRIL 5 MG TAB PO SCH (08:55)
[2017-04-28] MEDS: SODIUM CHLORIDE 0.9% FLUSH 10 ML FLUSH IV FLUSH SCH ×2 (08:56→21:00)
[2017-04-28] MEDS: busPIRone HCL 10 MG TAB PO SCH ×3 (08:56→17:52)
[2017-04-28] MEDS: PRAVASTATIN SOD 40 MG TAB PO SCH (08:56)
[2017-04-28] MEDS: metroNIDAZOLE 500 MG INJ 100 ML IV SCH (08:57)
--- NOTE | 2017-04-28 10:46 | HHI.PR ---
Subjective Subjective Notes Sitting up in chair Post op tenderness Complains of non-productive cough Objective Vitals/I&O Vital Signs Date Time Temp Pulse Resp B/P Pulse Ox O2 Delivery O2 Flow Rate FiO2 04/28/17 10:24 96 21 04/28/17 08:00 96.7 65 19 101/76 04/27/17 16:00 Nasal Cannula 2 Cardiovascular: Regular Lungs: Other (diminished on RLL) Abdomen: Post-op tenderness Extremities: Perfused Wound Wound : Wound Location: Abdomen Appearance: Clean & Dry A/P Assessment and Plan 61yo F POD#1 laparoscopic cholecystectomy with small bowel resection - Increase diet to softs - Continue with frequent ambulation The exam, history, and the medical decision-making described in the above note were completed with the assistance of the mid-level provider. I reviewed and agree with the findings presented. I attest that I had a [id number] encounter with the patient on the same day, and personally performed and documented my assessment and findings in the medical record. Discharge Planning D/C home possibly later today Nicolasa Cespedes Apr 28, 2017 10:46 Preston Cooper MD May 02, 2017 18:03
[2017-04-28] MEDS ORDERED: ENOXAPARIN SODIUM 40 MG/0.4 ML SYRINGE SQ SCH (13:00)
[2017-04-28] MEDS: RESP: ALBUTEROL 2.5 MG/IPRATROPIUM 0.5 MG NEB (SCH) NEB ×3 (13:18→19:43)
--- NOTE | 2017-04-28 13:38 | RADRPT ---
EXAM DATE/TIME: 04/28/2017 12:21 [facility] COMPARISON: No previous studies available for comparison. INDICATIONS : Cough. Chest pain. MEDICAL HISTORY : Hypertension. Diabetes mellitus type II. Chronic obstructive pulmonary disease. Asthma. SURGICAL HISTORY : Hysterectomy. ENCOUNTER: Initial ACUITY: 2 days PAIN SCORE: 2/10 LOCATION: Bilateral chest FINDINGS: The heart is minimally prominent. Minimal bibasilar streakiness is noted consistent with atelectasis and/or minimal infiltrates. No pulmonary edema is noted. Degenerative changes and scoliosis of the thoracolumbar spine are noted. CONCLUSION: 1. Minimal bibasilar streakiness consistent with atelectasis and/or minimal infiltrates. 2. Mild cardiomegaly. 3. Degenerative changes and scoliosis of the thoracolumbar spine. Zac Greene MD on April 28, 2017 at 13:26 Board Certified Radiologist. This report was verified electronically.
[2017-04-28] MEDS ORDERED: LEVO750T3 PO (17:03)
[2017-04-28] MEDS ORDERED: ZOLPIDEM TARTRATE 10 MG TAB PO PRN (17:45)
[2017-04-29] VITALS: BP 147/86; PULSE 76; RESP 20; TEMP 97.7; O2SAT 96
[2017-04-29] MEDS: RESP: ALBUTEROL 2.5 MG/IPRATROPIUM 0.5 MG NEB (SCH) NEB ×4 (00:01→12:14)
[2017-04-29] MEDS: LEVOTHYROXINE SODIUM 125 MCG TAB PO SCH (06:34)
[2017-04-29] MEDS: SODIUM CHLOR 0.9% 1000 ML INJ 1,000 ML IV SCH (06:39)
[2017-04-29 08:00] VITALS: BP 99/56; PULSE 79; RESP 17; TEMP 97.7; O2SAT 94
[2017-04-29] MEDS: SODIUM CHLORIDE 0.9% FLUSH 10 ML FLUSH IV FLUSH SCH (09:00)
[2017-04-29 09:14] VITALS: O2SAT 93
[2017-04-29] MEDS: DULoxetine HCl DR 60 MG CAP PO SCH (09:24)
[2017-04-29] MEDS: LISINOPRIL 5 MG TAB PO SCH (09:24)
[2017-04-29] MEDS: PRAVASTATIN SOD 40 MG TAB PO SCH (09:24)
[2017-04-29] MEDS: busPIRone HCL 10 MG TAB PO SCH (09:24)
[2017-04-29] MEDS: PANTOPRAZOLE SODIUM 40 MG VIAL IV SCH (09:25)
[2017-04-29] MEDS ORDERED: BENZOCAINE-MENTHOL (SUGAR FREE) 15 MG-3.6 MG LOZENGE BUCCAL ONE (10:00)
[2017-04-29 12:00] VITALS: BP 138/73; PULSE 67; RESP 17; TEMP 96.9; O2SAT 97
--- NOTE | 2017-04-29 12:23 | HHI.PR ---
Subjective Subjective Notes Sitting up in chair Feels better No GI complaints Objective Vitals/I&O Vital Signs Date Time Temp Pulse Resp B/P Pulse Ox O2 Delivery O2 Flow Rate FiO2 04/29/17 09:14 93 04/29/17 08:00 97.7 79 17 99/56 04/28/17 19:43 21 04/27/17 16:00 Nasal Cannula 2 Cardiovascular: Regular Lungs: Clear Abdomen: Post-op tenderness Extremities: Perfused Wound Wound : Wound Location: Abdomen Appearance: Clean & Dry A/P Assessment and Plan 61yo F POD#2 laparoscopic cholecystectomy with small bowel resection - Continue with soft bariatric diet - Continue with frequent ambulation The exam, history, and the medical decision-making described in the above note were completed with the assistance of the mid-level provider. I reviewed and agree with the findings presented. I attest that I had a [id number] encounter with the patient on the same day, and personally performed and documented my assessment and findings in the medical record. Discharge Planning D/C home today Nicolasa Cespedes Apr 29, 2017 12:23 Preston Cooper MD May 02, 2017 18:03
--- NOTE | 2017-05-03 06:30 | MP ---
cc: JORGE LUIS QUIROS DATE OF : 1955 DATE OF OPERATION 04/27/2017 PREOPERATIVE DIAGNOSIS Chronic cholecystitis with candy cane Ana limb, history of gastric bypass. POSTOPERATIVE DIAGNOSIS: Chronic cholecystitis with candy cane Ana limb, history of gastric bypass. PROCEDURE 1. Laparoscopic cholecystectomy. 2. Laparoscopic resection of candy cane Ana limb (small bowel resection). SURGEON Jorge Luis Quiros MD MISSION ANALYST: Duane Kasper MD. Dr. Kasper's assistance was necessary for the procedure due to the complexity of the procedure. Dr. Kasper was necessary for manipulation and exposure during the procedure. The high school assistant principal provided by [employer] was utilized for handling the camera. ANESTHESIA General endotracheal anesthesia ESTIMATED BLOOD LOSS Scant FINDINGS: Distended gallbladder dilated line limb under Ana of the patient's gastric bypass, no evidence of Mao's hernia or enteroenterostomy hernia. SPECIMENS Gallbladder COMPLICATIONS None OPERATION The patient was brought to the operating room, placed on the operating table in supine position. Bilateral sequential inflation device placed on lower extremities. General anesthesia instituted. Antibiotics initiated. The abdomen was prepped and draped sterilely. A point in the periumbilical region anesthetized with 0.25% Marcaine with epinephrine. Skin incision was made. A 5 mm OptiVu port placed under direct vision and pneumoperitoneum created. Under direct vision, a 5 mm subxiphoid, two 5 mm right upper quadrant and 12 mm left upper quadrant ports were placed. Prior to placement of all ports, pneumoperitoneum anesthetized with 0.25% Marcaine with epinephrine. The abdominal cavity was inspected. Findings as above. Attention focused on the gallbladder. The gallbladder was retracted into upper abdomen, Calot's triangle opened. The cystic artery was identified and circumferentially dissected. It was ligated with hemoclips and divided between the clips. The cystic duct was identified circumferentially dissected, ligated with hemoclips divided between the clips. The gallbladder was removed from the liver bed using the harmonic scalpel. The gallbladder was retrieved from the peritoneal cavity in an Endopouch through the 12 mm port site. Attention was then focused on the patient's gastric bypass. This was inspected. The patient's gastric pouch was within normal limits. She had a dilated line at the end of a Ana limb. There was no jejunojejunostomy, hernias or Mao's defect. The Ana limb was then mobilized. The distal stump on the Ana limb was mobilized off of the stomach. The mesentery on the dilated portion of the small bowel was using the harmonic scalpel and then this line limb was divided using an endovascular stapler blue load reinforced with Seamguard. The stump was then retrieved from the peritoneal cavity. The small bowel was then retrieved from the peritoneal cavity in an Endopouch. The operative field was inspected. Hemostasis present. No evidence of bile leak. CO2 was released, all ports were removed, all skin incisions were closed with 4-0 Monocryl. The abdominal wall was cleaned and sterile dressing placed. The patient was awakened and taken to the recovery room. MD SHERIE Portillo/DEV /5:38 PM /5:39 AM
== END 2017-04-29 15:16 | disposition home or self-care (01) | DRG 419 ==
LOC: HSDC 07:27 → HSDI 13:17 → N07B 16:46 → OBSVTOIN 04-29 09:51
PROVIDERS: ADMIT Surgery; ATTEND Surgery
PROC: 0FT44ZZ Resection of Gallbladder, Percutaneous Endoscopic Approach (ICD-10-PCS; principal; 2017-04-27 11:26)
PROC: 0DB84ZZ Excision of Small Intestine, Percutaneous Endoscopic Approach (ICD-10-PCS; 2017-04-27 11:26)
DX: K81.1 Chronic cholecystitis (principal); Z98.84 Bariatric surgery status
CPT/HCPCS: 71010; 88304; 94640; 94664; C9113; J0131; J1170; J1650; J2250; J2270; J2370; J2405; J2710; J3010; J3370; J7030; J7040; J7120